=== PATIENT | male | born 1955 | race Caucasian/White ===

== ENCOUNTER 2020-06-15 15:14 | Inpatient (IN) ==
[2020-06-15] MEDS ORDERED: ACETAMINOPHEN 325 MG TABLET PO PRN (15:44)
[2020-06-15] MEDS ORDERED: ONDANSETRON 4 MG/2 ML VIAL IV PRN (15:44)
[2020-06-15] MEDS ORDERED: ENOXAPARIN 30 MG/0.3 ML SYRINGE SUBCUT SCH (16:00)
[2020-06-15 17:41] LABS: Basophils % 0.2 % (0.0-0.8); Hematocrit 43.5 VOL% (42.0-52.0); Hemoglobin 15.5 GM/DL (14.0-18.0); Immature Granulocytes % 0.7 %; Immature Granulocytes Absolute 0.09 #; Lymphocytes # 0.7 10*3/uL (1.4-4.0); Lymphocytes % 5.7 % (21.2-54.2); Mean Corpuscular HGB Conc 35.6 GM/DL (32-36); Mean Corpuscular Volume 87.7 FL (87-102); Mean Platelet Volume 9.9 FL (9.6-12.0); Monocytes % 3.3 % (1.7-12.7); Neutrophils % 90.1 % (38.7-73.9); Platelet Count 318 T/CUMM (130-400); Red Blood Count 4.96 MC/CUMM (3.8-5.5); White Blood Count 12.5 T/CUMM (4-12)
[2020-06-15 18:01] LABS: PT Patient Result 52.2 SECS (9.8-11.9)
[2020-06-15 18:04] LABS: INR 5.3
[2020-06-15 18:08] LABS: Lymphocytes 6 % (20-55); Segmented Neutrophils 89 % (50-85); Total Cells Counted 100
[2020-06-15 18:10] LABS: Anisocytosis Slight; Platelet Estimate Adequate; Polychromasia Few
[2020-06-15 18:16] LABS: Albumin 3.3 G/DL (3.4-5.0); Bilirubin,Total 1.1 MG/DL (0.2-1.0); Calcium 8.7 MG/DL (8.5-10.1); Osmolality,Calculated 275.8 MOS/KG (273-304); Total Protein 7.3 G/DL (6.4-8.3)
[2020-06-15] MEDS ORDERED: BENZONATATE 100 MG CAPSULE PO PRN (19:42)
[2020-06-15] MEDS: METOPROLOL SUCCINATE XL 50 MG TABLET PO SCH (21:20)
[2020-06-15] MEDS: MULTIVITAMIN (CENTRUM) TABLET PO SCH (21:20)
[2020-06-15] MEDS: DOCUSATE SODIUM 100 MG CAPSULE PO SCH (21:21)
[2020-06-15] MEDS: BUDESONIDE/FORMOTEROL 80-4.5 INHALER 6.9 GM INH SCH (21:21)
[2020-06-16 05:44] LABS: Basophils % 0.2 % (0.0-0.8); Hematocrit 40.7 VOL% (42.0-52.0); Hemoglobin 14.6 GM/DL (14.0-18.0); Immature Granulocytes % 0.7 %; Immature Granulocytes Absolute 0.09 #; Lymphocytes # 1.4 10*3/uL (1.4-4.0); Lymphocytes % 10.1 % (21.2-54.2); Mean Corpuscular HGB Conc 35.9 GM/DL (32-36); Mean Corpuscular Volume 87.9 FL (87-102); Mean Platelet Volume 10.5 FL (9.6-12.0); Monocytes % 5.1 % (1.7-12.7); Neutrophils % 83.9 % (38.7-73.9); Platelet Count 325 T/CUMM (130-400); Red Blood Count 4.63 MC/CUMM (3.8-5.5); Red Cell Distribution Width 12.8 % (9.3-17.3); White Blood Count 13.7 T/CUMM (4-12)
[2020-06-16 06:08] LABS: INR 4.4
[2020-06-16 06:14] LABS: Bilirubin,Total 1.3 MG/DL (0.2-1.0); Calcium 8.6 MG/DL (8.5-10.1); Osmolality,Calculated 278.5 MOS/KG (273-304); Total Protein 6.6 G/DL (6.4-8.3)
[2020-06-16 06:28] LABS: PT Patient Result 43.8 SECS (9.8-11.9)
[2020-06-16 07:27] LABS: Bilirubin,Urine Negative (Negative); Blood, Urine Negative (Negative); Glucose,Urine (UA) Negative (Negative); Ketones,Urine Negative (Negative); Mucus,Urine Few /LPF (Occasional); Nitrite,Urine Negative (Negative); Protein,Urine 30 MG/DL; RBC,Urine <1 /HPF (0-4); Urine Appearance CLEAR (Clear); Urine Color Amber (Yellow); Urine Specific Gravity 1.028 (1.001-1.035); WBC,Urine 1 /HPF (0-6)
[2020-06-16 08:27] LABS: Lymphocytes 3 % (20-55); Segmented Neutrophils 91 % (50-85); Total Cells Counted 100
[2020-06-16 08:30] LABS: Atypical Lymphocytes Few; Polychromasia Slight; Smudge Cells Few
[2020-06-16 08:31] LABS: Platelet Estimate Normal
[2020-06-16] MEDS: METOPROLOL SUCCINATE XL 50 MG TABLET PO SCH ×2 (09:26→20:47)
[2020-06-16] MEDS: FAMOTIDINE 20 MG TABLET PO SCH (09:26)
[2020-06-16] MEDS: LORATADINE 10 MG TABLET PO SCH (09:26)
[2020-06-16] MEDS: ASCORBIC ACID 500 MG TABLET PO SCH (09:26)
[2020-06-16] MEDS: PANTOPRAZOLE 40 MG TABLET PO SCH (09:26)
[2020-06-16] MEDS: BUDESONIDE/FORMOTEROL 80-4.5 INHALER 6.9 GM INH SCH ×2 (09:26→20:47)
[2020-06-16] MEDS: DOCUSATE SODIUM 100 MG CAPSULE PO SCH ×3 (09:26→20:47)
[2020-06-16] MEDS: ZINC GLUCONATE 50 MG TABLET PO SCH (09:26)
[2020-06-16] MEDS: MULTIVITAMIN (CENTRUM) TABLET PO SCH ×2 (09:26→20:47)
[2020-06-16] MEDS ORDERED: REMDESIVIR 200 MG in SODIUM CHLORIDE 0.9% 210 ML IV ONE (13:00)
[2020-06-16] MEDS ORDERED: FUROSEMIDE 40 MG/4 ML VIAL IV ONE (13:28)
[2020-06-16] MEDS ORDERED: SODIUM CHLORIDE 0.9% 1,000 ML IV PRN (14:00)
[2020-06-16] MEDS: AZITHROMYCIN INJ 250 MG in SODIUM CHLORIDE 0.9% 250 ML IV SCH (14:09)
[2020-06-16] MEDS: DEXAMETHASONE 4 MG/1 ML VIAL IV SCH (14:09)
[2020-06-17 09:21] LABS: INR 2.3; PT Patient Result 23.2 SECS (9.8-11.9)
[2020-06-17] MEDS: DEXAMETHASONE 4 MG/1 ML VIAL IV SCH (11:36)
[2020-06-17] MEDS: FAMOTIDINE 20 MG TABLET PO SCH (11:37)
[2020-06-17] MEDS: ASCORBIC ACID 500 MG TABLET PO SCH (11:37)
[2020-06-17] MEDS: DOCUSATE SODIUM 100 MG CAPSULE PO SCH ×2 (11:38→20:50)
[2020-06-17] MEDS: PANTOPRAZOLE 40 MG TABLET PO SCH (11:38)
[2020-06-17] MEDS: MULTIVITAMIN (CENTRUM) TABLET PO SCH ×2 (11:38→20:50)
[2020-06-17] MEDS: LORATADINE 10 MG TABLET PO SCH (11:38)
[2020-06-17] MEDS: METOPROLOL SUCCINATE XL 50 MG TABLET PO SCH ×2 (11:38→20:50)
[2020-06-17] MEDS: REMDESIVIR 100 MG in SODIUM CHLORIDE 0.9% 100 ML IV SCH (11:38)
[2020-06-17] MEDS: ZINC GLUCONATE 50 MG TABLET PO SCH (11:38)
[2020-06-17] MEDS: BUDESONIDE/FORMOTEROL 80-4.5 INHALER 6.9 GM INH SCH ×2 (12:01→20:50)
[2020-06-17] MEDS: AZITHROMYCIN INJ 250 MG in SODIUM CHLORIDE 0.9% 250 ML IV SCH (12:40)
[2020-06-18] MEDS: DEXAMETHASONE 4 MG/1 ML VIAL IV SCH ×2 (09:11→17:55)
[2020-06-18] MEDS: LORATADINE 10 MG TABLET PO SCH (09:11)
[2020-06-18] MEDS: ZINC GLUCONATE 50 MG TABLET PO SCH (09:11)
[2020-06-18] MEDS: MULTIVITAMIN (CENTRUM) TABLET PO SCH ×2 (09:12→20:34)
[2020-06-18] MEDS: METOPROLOL SUCCINATE XL 50 MG TABLET PO SCH ×2 (09:12→20:34)
[2020-06-18] MEDS: PANTOPRAZOLE 40 MG TABLET PO SCH (09:12)
[2020-06-18] MEDS: FAMOTIDINE 20 MG TABLET PO SCH (09:12)
[2020-06-18] MEDS: BUDESONIDE/FORMOTEROL 80-4.5 INHALER 6.9 GM INH SCH ×2 (09:12→20:34)
[2020-06-18] MEDS: DOCUSATE SODIUM 100 MG CAPSULE PO SCH ×2 (09:12→20:34)
[2020-06-18] MEDS: ASCORBIC ACID 500 MG TABLET PO SCH (09:12)
[2020-06-18] MEDS: REMDESIVIR 100 MG in SODIUM CHLORIDE 0.9% 100 ML IV SCH (09:24)
[2020-06-18 10:24] LABS: Basophils % 0.1 % (0.0-0.8); Eosinophils # 0.1 10*3/uL (0.0-0.87); Eosinophils % 0.6 % (0.00-10.9); Hematocrit 43.2 VOL% (42.0-52.0); Immature Granulocytes % 1.6 %; Immature Granulocytes Absolute 0.23 #; Lymphocytes # 1.1 10*3/uL (1.4-4.0); Lymphocytes % 7.8 % (21.2-54.2); Mean Corpuscular HGB Conc 34.7 GM/DL (32-36); Mean Corpuscular Volume 90.9 FL (87-102); Mean Platelet Volume 9.8 FL (9.6-12.0); Monocytes % 3.9 % (1.7-12.7); Platelet Count 406 T/CUMM (130-400); Red Blood Count 4.75 MC/CUMM (3.8-5.5); White Blood Count 14.6 T/CUMM (4-12)
[2020-06-18 10:47] LABS: Calcium 8.4 MG/DL (8.5-10.1); Osmolality,Calculated 284.1 MOS/KG (273-304)
[2020-06-18] MEDS: AZITHROMYCIN INJ 250 MG in SODIUM CHLORIDE 0.9% 250 ML IV SCH (10:48)
[2020-06-19] MEDS: DEXAMETHASONE 4 MG/1 ML VIAL IV SCH ×2 (05:56→16:06)
[2020-06-19 06:42] LABS: Basophils # 0.1 10*3/uL (0.0-0.2); Basophils % 0.3 % (0.0-0.8); Eosinophils % 0.1 % (0.00-10.9); Hematocrit 43.7 VOL% (42.0-52.0); Immature Granulocytes Absolute 0.32 #; Lymphocytes # 0.9 10*3/uL (1.4-4.0); Lymphocytes % 5.2 % (21.2-54.2); Mean Corpuscular HGB Conc 34.3 GM/DL (32-36); Mean Corpuscular Volume 91.8 FL (87-102); Mean Platelet Volume 11.1 FL (9.6-12.0); Neutrophils % 89.4 % (38.7-73.9); Red Blood Count 4.76 MC/CUMM (3.8-5.5); Red Cell Distribution Width 12.9 % (9.3-17.3); White Blood Count 16.3 T/CUMM (4-12)
[2020-06-19 06:48] LABS: Platelet Count 260 T/CUMM (130-400)
[2020-06-19 07:03] LABS: Albumin 2.8 G/DL (3.4-5.0); Bilirubin,Total 1.4 MG/DL (0.2-1.0); Calcium 8.5 MG/DL (8.5-10.1); Osmolality,Calculated 274.8 MOS/KG (273-304); Total Protein 6.5 G/DL (6.4-8.3)
[2020-06-19] MEDS: ZINC GLUCONATE 50 MG TABLET PO SCH (08:07)
[2020-06-19] MEDS: MULTIVITAMIN (CENTRUM) TABLET PO SCH ×2 (08:07→21:52)
[2020-06-19] MEDS: FAMOTIDINE 20 MG TABLET PO SCH (08:07)
[2020-06-19] MEDS: LORATADINE 10 MG TABLET PO SCH (08:07)
[2020-06-19] MEDS: METOPROLOL SUCCINATE XL 50 MG TABLET PO SCH ×2 (08:07→21:55)
[2020-06-19] MEDS: DOCUSATE SODIUM 100 MG CAPSULE PO SCH ×2 (08:07→21:53)
[2020-06-19] MEDS: PANTOPRAZOLE 40 MG TABLET PO SCH (08:07)
[2020-06-19] MEDS: ASCORBIC ACID 500 MG TABLET PO SCH (08:07)
[2020-06-19] MEDS: BUDESONIDE/FORMOTEROL 80-4.5 INHALER 6.9 GM INH SCH ×2 (08:07→21:54)
[2020-06-19] MEDS: AZITHROMYCIN INJ 250 MG in SODIUM CHLORIDE 0.9% 250 ML IV SCH (08:08)
[2020-06-19] MEDS ORDERED: ENOXAPARIN 30 MG/0.3 ML SYRINGE SUBCUT ONE (08:40)
[2020-06-19] MEDS: REMDESIVIR 100 MG in SODIUM CHLORIDE 0.9% 100 ML IV SCH (10:18)
[2020-06-19 11:17] LABS: INR 1.5; PT Patient Result 15.6 SECS (9.8-11.9)
[2020-06-19] MEDS ORDERED: WARFARIN 5 MG TABLET PO SCH (21:00)
[2020-06-20] MEDS: DEXAMETHASONE 4 MG/1 ML VIAL IV SCH (05:55)
[2020-06-20] MEDS: LORATADINE 10 MG TABLET PO SCH (09:47)
[2020-06-20] MEDS: DOCUSATE SODIUM 100 MG CAPSULE PO SCH (09:47)
[2020-06-20] MEDS: PANTOPRAZOLE 40 MG TABLET PO SCH (09:48)
[2020-06-20] MEDS: AZITHROMYCIN INJ 250 MG in SODIUM CHLORIDE 0.9% 250 ML IV SCH (09:48)
[2020-06-20] MEDS: MULTIVITAMIN (CENTRUM) TABLET PO SCH (09:48)
[2020-06-20] MEDS: ASCORBIC ACID 500 MG TABLET PO SCH (09:48)
[2020-06-20] MEDS: FAMOTIDINE 20 MG TABLET PO SCH (09:48)
[2020-06-20] MEDS: ZINC GLUCONATE 50 MG TABLET PO SCH (09:48)
[2020-06-20] MEDS: BUDESONIDE/FORMOTEROL 80-4.5 INHALER 6.9 GM INH SCH (09:49)
[2020-06-20] MEDS: METOPROLOL SUCCINATE XL 50 MG TABLET PO SCH (09:52)
[2020-06-20 12:17] VITALS: BP 122/72
[2020-06-20] MEDS: REMDESIVIR 100 MG in SODIUM CHLORIDE 0.9% 100 ML IV SCH (12:35)
[2020-06-20] MEDS ORDERED: WARFARIN 2.5 MG TABLET PO SCH (21:00)
== END 2020-06-20 16:00 | disposition home or self-care (01) | DRG 177 ==
LOC: N.2E 16:09 → N.CC 06-16 05:00 → N.2E 06-16 05:13
PROVIDERS: ADMIT Family Medicine; ATTEND Family Medicine